=== PATIENT | male | born 1970 | race African-American/Black ===

== ENCOUNTER → 2020-06-23 | Outpatient (CLI) | payer BC ==
--- NOTE | 2020-06-24 12:52 | SLEEP ---
DATE OF STUDY: 06/24/2020 SLEEP STUDY REFERRING PHYSICIAN: Harry Vazquez APRN The patient is a 49-year-old who weighs 189 pounds with a BMI of 29. The patient's [place] score was 12. The patient had a sleep study 10 years ago and was positive for sleep apnea. During the night study, the patient spent 512 minutes in bed and slept for 288 minutes with a low sleep efficiency of 56%. Sleep latency was 44 minutes with a REM latency of 409 minutes. Sleep architecture showed increased stage 1 and stage 2 sleep, normal slow wave and reduced REM sleep, which was only 3% of total sleep time. During the initial diagnostic portion of the study, the patient slept for 79 minutes. During that time, there were 1 obstructive apnea, 13 mixed apneas, no central apneas and 27 hypopneas. The patient's AHI was 31 per hour. Supine sleep was not observed and REM sleep was not observed during the diagnostic portion. Nocturnal oximetry study revealed a mean oxygen saturation of 96% with the lowest of 90%. PLMS were seen at index of 5 per hour and 1 per hour caused EEG arousals. EKG monitoring revealed mean heart rate of 78 beats per minute, no arrhythmias observed. The patient was started on CPAP at a pressure of 7 cm water and titrated up to 16 cm water. At the final pressure, the patient slept for 25 minutes. The patient had supine as well as REM sleep. Majority of obstructive apneas and hypopneas were resolved, but central apneas were seen likely treatment emergent apneas. The patient's AHI as a result from mask leak and central apneas was 19 per hour. Oxygen saturation remained above 94%. The patient used medium size full face mask. IMPRESSION: 1. Severe obstructive sleep apnea at an AHI of 31 per hour. 2. No significant nocturnal hypoxia. 3. No clinically significant periodic limb movements. RECOMMENDATIONS: 1. CPAP at 16 cm water did eliminate obstructive apneas as well as hypopneas; however, treatment emergent central apneas were observed from mask leak. These usually resolved over a period of time. I would recommend keeping the CPAP pressure at 16 cm water. 2. The patient should have a followup in 4-6 weeks to assess compliance and to also review the download data to make sure AHI remains less than 5 per hour. 3. If the patient's AHI remains more than 10 per hour, then the patient should return to the sleep lab for a BiPAP titration study. 4. Weight loss is advised. 5. Avoid [employer] depressants. 6. Cautioned regarding driving until symptoms of sleep apnea resolve with above recommendations. KIRA QUINONES MD DR: SANDRA/evelina JOB#: [id number] / [id number] HARRY Nguyen APRN
== END ==
LOC: RT 19:13
PROVIDERS: ATTEND Nurse Practitioner Gerontology
DX: G47.33 Obstructive sleep apnea (adult) (pediatric) (principal)
CPT/HCPCS: 95810